=== PATIENT | male | born 1980 ===

== ENCOUNTER 2024-02-23 15:43 | Emergency (ER) | payer BC ==
[2024-02-23] MEDS: Ketorolac 60 MG/2 ML SDV IM ONE (16:57)
== END 2024-02-23 17:56 | disposition home or self-care (01) ==
LOC: JD.ED 15:43
DX: S46.212A Strain of muscle, fascia and tendon of other parts of biceps, left arm, initial encounter (principal); X50.9XXA Other and unspecified overexertion or strenuous movements or postures, initial encounter
CPT/HCPCS: 96372; 99283; J1885

== ENCOUNTER 2024-03-09 10:17 | Day surgery (SDC) | payer BC ==
[~2024-03-09 10:17] MED LIST: Sodium Chloride 0.9% 10 ML Syringe FLUSH PRN; Sodium Chloride 0.9% 10 ML Syringe FLUSH SCH
[2024-03-09] MEDS: Lactated Ringers 1,000 ML IV SCH (10:40)
[2024-03-09] MEDS ORDERED: fentaNYL 100 MCG/2 ML SDV ONE (10:59)
[2024-03-09] MEDS ORDERED: Midazolam 1 MG/ML 2 ML SDV ONE (10:59)
[2024-03-09] MEDS ORDERED: Ropivacaine 0.5% 5 MG/ML 30 ML SDV ONE (11:03)
[2024-03-09] MEDS ORDERED: Lidocaine 1% PF 2 ML SDV ONE (11:03)
[2024-03-09] MEDS ORDERED: Dexamethasone 4 MG/ML 5 ML MDV ONE (11:03)
[2024-03-09] MEDS ORDERED: Propofol 200 MG/20 ML SDV ONE (11:31)
[2024-03-09] MEDS ORDERED: Ondansetron 4 MG/2 ML SDV ONE (11:32)
[2024-03-09] MEDS ORDERED: Lidocaine 1% 5 ML VIAL ONE (11:32)
[2024-03-09] MEDS ORDERED: ceFAZolin 2 GM Vial ONE (12:51)
[2024-03-09] MEDS ORDERED: fentaNYL 100 MCG/2 ML SDV IVPUSH PRN (13:02)
[2024-03-09] MEDS ORDERED: Ondansetron 4 MG/2 ML SDV IVPUSH PRN (13:02)
[2024-03-09] MEDS ORDERED: HYDROmorphone 0.5 MG/0.5 ML Syringe IVPUSH PRN (13:02)
[2024-03-09] MEDS ORDERED: Acetaminophen/HYDROcodone 325-5 MG Tab PO PRN (14:02)
== END 2024-03-09 16:30 | disposition home or self-care (01) ==
LOC: JD.SDS 10:17
PROVIDERS: ATTEND Orthopaedic Surgery
DX: S46.212A Strain of muscle, fascia and tendon of other parts of biceps, left arm, initial encounter (principal); I10 Essential (primary) hypertension; X58.XXXA Exposure to other specified factors, initial encounter; Z79.899 Other long term (current) drug therapy
CPT/HCPCS: 24342; 36415; 76000; 84443; C1776; J0690; J1100; J2250; J2405; J2704; J2795; J3010; J7120; 01710; 64415; J3490